=== PATIENT | female | born 1985 | race African-American/Black ===

== ENCOUNTER 2020-10-09 10:08 | Emergency (ER) | payer OTHER ==
[~2020-10-09] VITALS: Ht 162.6 cm; Wt 57.2 kg
[2020-10-09 10:44] LABS: Mean Corpuscular Hgb Conc. 28.8 g/dL (32.0-36.0)
[2020-10-09 10:46] LABS: Hematocrit 25.5 % (36.0-46.0); Hemoglobin 7.3 g/dL (12.2-16.2); Mean Corpuscular Hemoglobin 15.8 pg (28.0-32.0); Mean Corpuscular Volume 54.8 fL (80.0-100.0); Red Blood Cells 4.66 10^6/uL (4.0-5.20); White Blood Cell 5.3 10^3/uL (4.4-10.8)
[2020-10-09 10:48] LABS: Red Cell Distribution Width 21.9 % (11.8-14.3)
[2020-10-09 10:49] LABS: Urine Bacteria NONE SEEN /hpf (None Seen); Urine Blood Negative /uL (Negative); Urine Mucus FEW (None Seen); Urine Specific Gravity 1.024 (1.001-1.035); Urine WBC 11 /hpf (0 - 5)
[2020-10-09 10:50] LABS: Band Neutrophils % (manual) 0; Basophils % (manual) 0 (0.0-2.0); Blast Cells 0; Metamyelocytes % 0; Myelocytes % 0; Promyelocytes % 0; Reactive Lymphocytes 0
[2020-10-09 11:59] VITALS: BP 117/82
[2020-10-09 12:02] LABS: Eosinophils % (manual) 2 (0-7); Lymphocytes % (manual) 29 (10.0-50.0); Monocytes % (manual) 6 (0-12)
== END 2020-10-09 13:01 | disposition home or self-care (01) ==
LOC: ER 10:08
DX: O20.0 Threatened abortion (principal); O23.41 Unspecified infection of urinary tract in pregnancy, first trimester; O99.011 Anemia complicating pregnancy, first trimester; Z3A.10 10 weeks gestation of pregnancy
CPT/HCPCS: 36415; 76801; 76817; 81001; 84702; 85007; 85027